=== PATIENT | female | born 1990 | race African-American/Black ===

== ENCOUNTER 2019-02-11 02:12 | Emergency (ER) | payer OTHER ==
[2019-02-11 03:53] LABS: #Basophils 0.1 thou/uL (0.0-0.2); #Eosinphils 0.1 thou/uL (0.0-0.7); #Lymphocytes 2.4 thou/uL (1.20-3.40); #Monocytes 0.5 thou/uL (0.11-0.59); #Neutrophils 3.3 thou/uL (1.40-6.50); %Basophils 0.9 % (0.0-1.0); %Eosinophils 1.5 % (0.0-10.0); %Lymphocytes 37.9 % (21.0-51.0); %Monocytes 8.4 % (0.0-10.0); %Neutrophils 51.3 % (42.0-75.0); Hemoglobin 12.9 g/dL (12.0-16.0); Mean Corpuscular HGB CONC 32.2 g/dL (32.0-36.0); Mean Corpuscular Hemoglobin 28.1 pg (27.0-31.0); Mean Corpuscular Volume 87.2 fL (78.0-98.0); Mean Platelet Volume 7.3 fL (7.4-10.4); Platelet Count 262 thou/uL (130-400); RBC Distribution Width 11.9 % (11.5-14.5); Red Blood Cell (RBC) Count 4.59 mill/uL (4.20-5.40); White Blood Cell (WBC) Count 6.3 thou/uL (4.8-10.8)
[2019-02-11 04:14] LABS: ALT (SGPT) 10 U/L (8-55); AST (SGOT) 13 U/L (5-34); Albumin 4.4 g/dL (3.5-5.0); Alkaline Phosphatase 70 U/L (40-150); Anion Gap 12 mmol/L (10-20); BUN (Urea Nitrogen) 10 mg/dL (7.0-18.7); Bilirubin, Total 0.2 mg/dL (0.2-1.2); Calc. Creatinine Clearance 0 mL/min (70-130); Calcium 9.9 mg/dL (7.8-10.44); Carbon Dioxide 25 mmol/L (22-29); Chloride 104 mmol/L (98-107); Estimated GFR-MDRD 88; Globulin 3.9 g/dL (2.4-3.5); Glucose 94 mg/dL (70-105); Potassium 3.7 mmol/L (3.5-5.1); Protein, Total 8.3 g/dL (6.0-8.3); Sodium 137 mmol/L (136-145)
[2019-02-11] MEDS ORDERED: hydrALAZINE 10 MG TAB PO SCH (04:30)
--- NOTE | 2019-02-11 08:01 | CT ---
FPRELIMINARY REPORT: CT Head Without Contrast EXAM DATE/TIME: 02/11/2019 3:50 AM CLINICAL HISTORY: 28 years old, female; Signs and symptoms; Dizziness; Patient HX: Patient reports dizziness whenever she walks, reports she feels like the room is spinning, and at times she feels like she may fall TECHNIQUE: Axial computed tomography images of the head/brain without contrast. COMPARISON: No relevant prior studies available. FINDINGS: Brain: Normal. No hemorrhage. No significant white matter disease. No edema. Ventricles: Normal. No ventriculomegaly. Bones/joints: Unremarkable. No acute fracture. Sinuses: Visualized sinuses are unremarkable. No acute sinusitis. Mastoid air cells: Visualized mastoid air cells are unremarkable. No mastoid effusion. Soft tissues: Unremarkable. IMPRESSION: No acute intracranial abnormality. Thank you for allowing us to participate in the care of your patient. Dictated and Authenticated by: Moses Santos MD 02/11/2019 4:00 AM Central Time ([place] & [place]) Final report by Dr. Ridley Emergency after-hours study. CT brain noncontrast: HISTORY: 28-year-old female with dizziness and vertigo FINDINGS: There is no evidence of acute intra-axial or extra-axial hemorrhage. No mass effect, midline shift, o r extra-axial fluid collection. No evidence of obstructive hydrocephalus. Calvarium is intact. Agree with preliminary report by virtual radiologic. IMPRESSION: No acute intracranial findings. Transcribed Date/Time: 02/11/2019 1:10 PM
== END 2019-02-11 05:05 | disposition home or self-care (01) ==
LOC: ERS 02:12
DX: H81.399 Other peripheral vertigo, unspecified ear (principal); I10 Essential (primary) hypertension; Z79.899 Other long term (current) drug therapy
CPT/HCPCS: 36415; 70450; 80053; 84484; 85025; 93005

== ENCOUNTER 2019-04-11 13:09 | Inpatient (IN) | payer OTHER ==
[2019-04-11] MEDS ORDERED: hydrALAZINE 20 MG/ML VIAL ONE (13:30)
[2019-04-11 13:59] LABS: #Lymphocytes 1.6 thou/uL (1.20-3.40); #Monocytes 0.3 thou/uL (0.11-0.59); #Neutrophils 3.1 thou/uL (1.40-6.50); %Basophils 0.5 % (0.0-1.0); %Eosinophils 0.7 % (0.0-10.0); %Lymphocytes 31.1 % (21.0-51.0); %Monocytes 6.6 % (0.0-10.0); %Neutrophils 61.1 % (42.0-75.0); Hemoglobin 13.1 g/dL (12.0-16.0); Mean Corpuscular HGB CONC 33.2 g/dL (32.0-36.0); Mean Corpuscular Hemoglobin 28.5 pg (27.0-31.0); Mean Corpuscular Volume 85.8 fL (78.0-98.0); Platelet Count 264 thou/uL (130-400); RBC Distribution Width 12.1 % (11.5-14.5); Red Blood Cell (RBC) Count 4.59 mill/uL (4.20-5.40)
[2019-04-11 14:09] LABS: Bilirubin Negative (Negative); Blood, Urine Negative (Negative); Glucose, Urine (Dipstick) Negative (Negative); Leukocyte Negative (Negative); Nitrite Negative (Negative); Protein, Urine (Dipstick) Negative (Neg-Trace); Specific Gravity, Urine 1.024 (1.002-1.036); Urobilinogen 0.2 mg/dL (0.2-1.0); pH, Urine 6.5 (5.0-9.0)
[2019-04-11 14:12] LABS: Clarity Cloudy (Clear)
[2019-04-11] MEDS ORDERED: Labetalol HCl 100 MG/20 ML VIAL ONE (14:23)
[2019-04-11 14:24] LABS: ALT (SGPT) 11 U/L (8-55); AST (SGOT) 16 U/L (5-34); Albumin 4.5 g/dL (3.5-5.0); Alkaline Phosphatase 66 U/L (40-150); Anion Gap 15 mmol/L (10-20); BUN (Urea Nitrogen) 13 mg/dL (7.0-18.7); Bilirubin, Total 0.4 mg/dL (0.2-1.2); Calc. Creatinine Clearance 0 mL/min (70-130); Calcium 9.9 mg/dL (7.8-10.44); Carbon Dioxide 25 mmol/L (22-29); Chloride 103 mmol/L (98-107); Estimated GFR-MDRD 76; Globulin 3.9 g/dL (2.4-3.5); Glucose 98 mg/dL (70-105); Potassium 3.6 mmol/L (3.5-5.1); Protein, Total 8.4 g/dL (6.0-8.3); Sodium 139 mmol/L (136-145)
--- NOTE | 2019-04-11 14:54 | RAD ---
SINGLE VIEW OF THE CHEST: COMPARISON: None. HISTORY: Hypertension. FINDINGS: Single view of the chest shows a normal sized cardiomediastinal silhouette. There is no evidence of c onsolidation, mass, or pleural effusion. The bones are unremarkable. IMPRESSION: No evidence of acute cardiopulmonary disease. POS: [facility]
[2019-04-11] MEDS ORDERED: Lisinopril 10 MG TAB ONE (15:27)
[2019-04-11] MEDS ORDERED: Spironolactone 25 MG TAB PO SCH ×2 (15:45→16:00)
--- NOTE | 2019-04-11 15:51 | PDOC.FPRHP ---
- History of Present Illness Chief Complaint: high BP History of Present Illness: Ms. Briscoe is a 28 yo AAF with PMHx primary hyperaldosteronism and secondary HTN who presents after being sent over from clinic for diastolic BP in the 150s. She states she has been feeling well and apart from having a dry cough last night and a little bit of a headache since arriving to ED, has had no new symptoms. She denies vision changes or blurry vision. She has been taking meds as prescribed. She states she was still on 20 mg of lisinopril and discussion with Dr. Dixon today was to add back on chlorthalidone. ED Course: 10 IV hydralazine 10 IV labetalol CXR and EKG - Allergies/Adverse Reactions Allergies Allergy/AdvReac Type Severity Reaction Status Date / Time No Known Drug Allergies Allergy Verified 04/11/19 17:12 - Home Medications Medication Instructions Recorded Confirmed Type Lisinopril 20 mg PO DAILY 04/11/19 04/11/19 History Metoprolol Succinate 25 mg PO DAILY 04/11/19 04/11/19 History Spironolactone 50 mg PO DAILY 04/11/19 04/11/19 History - History PMHx: Primary hyperaldosteronism, secondary HTN PSHx: Cholecystectomy FHx: Mom with DM and HTN, Dad with HTN, Brother with kidney failure Social: Rare social alcohol (1-2 drinks), denies tobacco or drug use, works at [employer], with 1 daughter - Review of Systems General: denies: fever/chills, weight/appetite/sleep changes Eyes: denies: eye pain, vision changes ENT: denies: nasal congestion, rhinorrhea Respiratory: reports: cough. denies: congestion, shortness of breath, exercise intolerance Cardiovascular: denies: chest pain, palpitation Gastrointestinal: denies: nausea, vomiting, abdominal pain Genitourinary: denies: incontinence, dysuria Skin: denies: rashes, lesions Musculoskeletal: denies: pain, stiffness Neurological: denies: numbness, syncope, weakness Psychological: denies: anxiety, depression - Vital signs BP: 163/120 HR: 109 RR: 16 Tmax: 99.0 Pox: 100% on RA Wt: 80 kg - Physical Exam Constitutional: NAD, awake, alert and oriented, well developed HEENT: EOMI, conjunctiva clear, grossly normal vision, MMM Neck: supple, trachea midline Chest: no-tender to palpation Heart: RRR, normal S1/S2 Lungs: CTAB, no respiratory distress Abdomen: soft, non-tender Musculoskeletal: normal structure, normal tone Neurological: no focal deficit, normal sensation Skin: no rash/lesions, capillary refill <2 seconds Heme/Lymphatic: no unusual bruising or bleeding, no purpura Psychiatric: normal mood and affect, good judgment and insight FMR H&P: Results - Labs Result Diagrams: 04/11/19 13:45 04/11/19 13:45 Lab results: WBC 5.0 thou/uL (4.8-10.8) 04/11/19 13:45 Hgb 13.1 g/dL (12.0-16.0) 04/11/19 13:45 Hct 39.4 % (36.0-47.0) 04/11/19 13:45 MCV 85.8 fL (78.0-98.0) 04/11/19 13:45 Plt Count 264 thou/uL (130-400) 04/11/19 13:45 Neutrophils % 61.1 % (42.0-75.0) 04/11/19 13:45 Sodium 139 mmol/L (136-145) 04/11/19 13:45 Potassium 3.6 mmol/L (3.5-5.1) 04/11/19 13:45 Chloride 103 mmol/L (98-107) 04/11/19 13:45 Carbon Dioxide 25 mmol/L (22-29) 04/11/19 13:45 BUN 13 mg/dL (7.0-18.7) 04/11/19 13:45 Creatinine 1.03 mg/dL (0.6-1.1) 04/11/19 13:45 Glucose 98 mg/dL (70-105) 04/11/19 13:45 Calcium 9.9 mg/dL (7.8-10.44) 04/11/19 13:45 Total Bilirubin 0.4 mg/dL (0.2-1.2) 04/11/19 13:45 AST 16 U/L (5-34) 04/11/19 13:45 ALT 11 U/L (8-55) 04/11/19 13:45 Alkaline Phosphatase 66 U/L (40-150) 04/11/19 13:45 Serum Total Protein 8.4 g/dL (6.0-8.3) H 04/11/19 13:45 Albumin 4.5 g/dL (3.5-5.0) 04/11/19 13:45 Urine Ketones Negative mg/dL (Negative) 04/11/19 13:33 Urine Blood Negative (Negative) 04/11/19 13:33 Urine Nitrite Negative (Negative) 04/11/19 13:33 Ur Leukocyte Esterase Negative (Negative) 04/11/19 13:33 - Radiology Interpretation Chest x-ray Status: image reviewed by me (no acute cardiopulmonary process) FMR H&P: A/P - Problem List (1) Primary hyperaldosteronism Current Visit: Yes Status: Acute (2) Secondary hypertension Current Visit: Yes Status: Acute Code(s): I15.9 - SECONDARY HYPERTENSION, UNSPECIFIED (3) Hypertensive urgency Current Visit: Yes Status: Acute Code(s): I16.0 - HYPERTENSIVE URGENCY - Plan 28 yo F with primary hyperaldosteronism (and secondary HTN) here with hypertensive urgency 1. Hypertensive urgency - Modest improvement with IV hydralazine and labetalol - Goal decrease no more than 20-30% in 24 hours - Asymptomatic - Will increase home spironolactone, consider changing B-bin to Coreg/ increase Lisinopril if insufficient - Monitor on tele obs 2. Primary hyperaldosteronism - Pending renal artery dopplers outpatient to r/o renal artery stenosis as well - Increase spironolactone as above (q2 weeks) - Endo referral pending OP - Unremarkable CT in January 2019 3. Diastolic dysfunction (HFpEF) - Outpatient cardiology referral in place - Asymptomatic - Echo EF 52% with grade 1 diastolic dysfunction in January 2019 - On ELSI and B-bin 4. Secondary HTN - See #1 PPX: Lovenox CODE: FULL Patient discussed with Dr. Hermosillo who agrees with above A/P. Addendum - Attending - Attending Attestation Date/Time: 04/11/19 8121 I personally evaluated the patient and discussed the management with Dr. Jalloh. I agree with the History, Examination, Assessment and Plan documented above with any addition or exceptions noted below. Patient with history of hypertension secondary to primary hyperaldosteronism presenting from our outside clinic due to elevated blood pressure. Patient is overall asymptomatic, other than a headache she received after hydralazine therapy. She denies chest pain, shortness of breath, edema, palpitations. Vital signs on admission showed systolic blood pressure greater than 200 and diastolic pressures in the 130 to 140 range. Blood pressure is improved currently at 170/105. Patient is otherwise asymptomatic. Labs reviewed from todays admission are overall stable with her baseline. No evidence of cardiac ischemia or renal insult. Clinic labs reviewed which showed extremely elevated aldosterone to renin ratio likely confirming primary hyperaldosteronism. Patient will be admitted for hypertensive urgency, will increase Spironolactone and add back home medications and titrate as needed to improve blood pressure. Ensure electrolytes remain within normal limits. She otherwise has outpatient work up and imaging studies planned and will defer that at this time unless symptoms or her clinical condition deteriorates. Nicole Hermosillo MD, MS
[2019-04-11 17:19] VITALS: BMI 33.9
[2019-04-11 18:09] LABS: Troponin I Less than 0.010 ng/mL (< 0.028)
[2019-04-11] MEDS: Acetaminophen 500 MG TAB PO PRN (19:03)
[2019-04-11] MEDS: Labetalol HCl 100 MG/20 ML VIAL SLOW IVP PRN ×3 (19:49→22:02)
[2019-04-11 20:59] LABS: Troponin I Less than 0.010 ng/mL (< 0.028)
[2019-04-11] MEDS ORDERED: hydrALAZINE 20 MG/ML VIAL SLOW IVP SCH (22:45)
[2019-04-11] MEDS: Ketorolac Tromethamine 30 MG/ML VIAL IVP PRN (23:49)
--- NOTE | 2019-04-12 05:57 | PDOC.FM ---
- Subjective Subjective: Uncontrolled BPs requiring IV labetalol and hydralazine. Has mild MORALES, but much improved. No chest pain, SOB. - Objective MAR Reviewed: Yes Vital Signs & Weight: Vital Signs (12 hours) Temp Pulse Resp BP BP Pulse Ox 04/12/19 03:00 98.1 F 90 16 133/83 99 04/11/19 23:15 97.5 F L 92 20 165/89 H 98 04/11/19 22:50 91 04/11/19 22:30 91 196/120 H 04/11/19 22:25 90 190/119 H 04/11/19 21:33 83 183/103 H 04/11/19 21:03 90 208/126 H 04/11/19 19:39 98.4 F 82 16 186/125 H 100 04/11/19 18:00 166/103 H Weight Weight 81.363 kg I&O: 04/10/19 04/11/19 04/12/19 06:59 06:59 06:59 Intake Total 113 Output Total 425 Balance -312 Result Diagrams: 04/12/19 06:16 04/12/19 06:16 Phys Exam - Physical Examination Constitutional: NAD HEENT: PERRLA, moist MMs Respiratory: no wheezing, clear to auscultation bilateral Cardiovascular: RRR, no significant murmur Gastrointestinal: soft, non-tender Neurological: non-focal, moves all 4 limbs Psychiatric: normal affect, A&O x 3 Skin: no rash, cap refill <2 seconds Dx/Plan (1) Hypertensive urgency Code(s): I16.0 - HYPERTENSIVE URGENCY Status: Acute (2) Primary hyperaldosteronism Status: Acute (3) Secondary hypertension Code(s): I15.9 - SECONDARY HYPERTENSION, UNSPECIFIED Status: Acute - Plan Plan: 28 yo F with primary hyperaldosteronism (and secondary HTN) here with hypertensive urgency #Hypertensive urgency - Goal decrease no more than 20-30% in 24 hours - Asymptomatic, currently - Required 60mg labetalol & 10hydralazine overnight - Overnight BPs ranging from 133/83-208/136 - change metoprolol to coreg, start spironolactone 50mg BID, continue lisinopril 20 - Obtian renal US since planned for outpt workup - If BPs remain <160/<110 today then can consider late dischrage - If requiring PRN IV antihypertensives will keep overnight #Primary hyperaldosteronism - Pending renal artery dopplers outpatient to r/o renal artery stenosis as well - Increase spironolactone as above (q2 weeks) - Endo referral pending OP - Unremarkable CT in January 2019 #Diastolic dysfunction (HFpEF) - Outpatient cardiology referral in place - Asymptomatic - Echo EF 52% with grade 1 diastolic dysfunction in January 2019 #Secondary HTN - See #1 dvt PPX: Lovenox CODE: FULL
[2019-04-12 06:47] LABS: #Eosinphils 0.1 thou/uL (0.0-0.7); #Lymphocytes 1.4 thou/uL (1.20-3.40); #Monocytes 0.5 thou/uL (0.11-0.59); #Neutrophils 2.6 thou/uL (1.40-6.50); %Basophils 0.8 % (0.0-1.0); %Eosinophils 1.9 % (0.0-10.0); %Lymphocytes 30.6 % (21.0-51.0); %Monocytes 11.4 % (0.0-10.0); %Neutrophils 55.3 % (42.0-75.0); Mean Corpuscular HGB CONC 32.5 g/dL (32.0-36.0); Mean Corpuscular Hemoglobin 28.1 pg (27.0-31.0); Mean Corpuscular Volume 86.3 fL (78.0-98.0); Mean Platelet Volume 7.2 fL (7.4-10.4); Platelet Count 256 thou/uL (130-400); RBC Distribution Width 12.3 % (11.5-14.5); Red Blood Cell (RBC) Count 4.62 mill/uL (4.20-5.40); White Blood Cell (WBC) Count 4.7 thou/uL (4.8-10.8)
[2019-04-12 07:09] LABS: ALT (SGPT) 9 U/L (8-55); AST (SGOT) 14 U/L (5-34); Alkaline Phosphatase 60 U/L (40-150); Anion Gap 13 mmol/L (10-20); BUN (Urea Nitrogen) 14 mg/dL (7.0-18.7); Bilirubin, Total 0.3 mg/dL (0.2-1.2); Calc. Creatinine Clearance 129 mL/min (70-130); Calcium 9.6 mg/dL (7.8-10.44); Carbon Dioxide 24 mmol/L (22-29); Chloride 102 mmol/L (98-107); Estimated GFR-MDRD Greater than 90; Globulin 3.4 g/dL (2.4-3.5); Glucose 96 mg/dL (70-105); Potassium 3.7 mmol/L (3.5-5.1); Protein, Total 7.4 g/dL (6.0-8.3); Sodium 135 mmol/L (136-145)
[2019-04-12] MEDS: Enoxaparin Sodium 40 MG/0.4 ML SYRINGE SC SCH (07:53)
[2019-04-12] MEDS ORDERED: Spironolactone 100 MG TAB PO SCH (08:00)
[2019-04-12] MEDS: Carvedilol 3.125 MG TAB PO SCH ×2 (10:39→11:24)
[2019-04-12] MEDS ORDERED: Lisinopril 20 MG TAB PO SCH (10:45)
[2019-04-12] MEDS ORDERED: Carvedilol 3.125 MG TAB PO SCH ×2 (11:45→17:00)
[2019-04-12] MEDS: Ketorolac Tromethamine 30 MG/ML VIAL IVP PRN (14:04)
--- NOTE | 2019-04-12 15:15 | ULT ---
BILATERAL RENAL ULTRASOUND COMPLETE INCLUDING COLOR AND SPECTRAL DOPPLER IMAGING: HISTORY: Uncontrolled chronic hypertension. FINDINGS: The right kidney measures 9.8 x 3.7 x 4.9 cm. The left kidney measures 10.6 x 5.0 x 4.6 cm. No renal hydronephrosis. No perinephric process. Uri nary bladder appears unremarkable. VASCULAR DUPLEX WITH COLOR AND SPECTRAL DOPPLER IMAGING: No significant abnormal increased velocities. Right and left renal artery/aortic ratios are within n ormal limits. Right and left resistive indices are within normal limits, 0.5 cm on the right, 0.5 cm on the left. IMPRESSION: Unremarkable bilateral renal ultrasound. No renal hydronephrosis. No evidence for abnormal renal ar ailyn stenosis. POS: OFF
[2019-04-12] MEDS: Carvedilol 6.25 MG TAB PO SCH (16:19)
[2019-04-12] MEDS: Labetalol HCl 100 MG/20 ML VIAL SLOW IVP PRN (21:48)
[2019-04-13 06:19] LABS: Anion Gap 12 mmol/L (10-20); BUN (Urea Nitrogen) 20 mg/dL (7.0-18.7); Calc. Creatinine Clearance 106 mL/min (70-130); Calcium 9.8 mg/dL (7.8-10.44); Carbon Dioxide 25 mmol/L (22-29); Chloride 103 mmol/L (98-107); Estimated GFR-MDRD 79; Glucose 92 mg/dL (70-105); Potassium 4.1 mmol/L (3.5-5.1); Sodium 136 mmol/L (136-145)
--- NOTE | 2019-04-13 06:47 | PDOC.FM ---
- Subjective Subjective: NAEO. NO headaches, chest pain, SOB. Slept well. - Objective MAR Reviewed: Yes Vital Signs & Weight: Vital Signs (12 hours) Temp Pulse Resp BP BP Pulse Ox 04/13/19 03:05 97.5 F L 77 16 137/89 99 04/12/19 23:15 81 180/110 H 04/12/19 21:48 81 185/130 H 04/12/19 20:03 98.1 F 80 18 181/116 H 100 04/12/19 19:10 98.1 F 78 16 170/120 H 100 Weight Weight 81.363 kg I&O: 04/11/19 04/12/19 04/13/19 06:59 06:59 06:59 Intake Total 503 Output Total 425 Balance 78 Result Diagrams: 04/12/19 06:16 04/13/19 05:08 Phys Exam - Physical Examination Constitutional: NAD HEENT: PERRLA, moist MMs Respiratory: no wheezing, clear to auscultation bilateral Cardiovascular: RRR, no significant murmur, no rub Musculoskeletal: no edema Neurological: non-focal, moves all 4 limbs Psychiatric: normal affect, A&O x 3 Skin: no rash, cap refill <2 seconds Dx/Plan (1) Hypertensive urgency Code(s): I16.0 - HYPERTENSIVE URGENCY Status: Acute (2) Primary hyperaldosteronism Status: Acute (3) Secondary hypertension Code(s): I15.9 - SECONDARY HYPERTENSION, UNSPECIFIED Status: Acute - Plan Plan: 28 yo F with primary hyperaldosteronism (and secondary HTN) here with hypertensive urgency #Hypertensive urgency - Asymptomatic, currently - Overnight BPs still elevated, ranging 148-180/105-120, averaging in high 160s for SBP - currently coreg 6.25 BID, spironolactone 50mg BID, lisinopril 20 - Required IV labetalol overnight, 20mg x1 - coreg 6.25 x1, inc to 12.5 BID, continue BP monitoring #Primary hyperaldosteronism - Renal arter dopplers negative - Endo referral in process outpatient, per PCP - Unremarkable CT in January 2019 -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 Connor. I agree with the History, Examination, Assessment and Plan documented above with any addition or exceptions noted below. Will try addition of hydralazine today and see how BPs respond throughout the day. Continue 24h urine cortisol collection. Likely d/c today.
[2019-04-13] MEDS: Spironolactone 100 MG TAB PO SCH ×2 (08:53→20:24)
[2019-04-13] MEDS: Lisinopril 20 MG TAB PO SCH (08:55)
[2019-04-13] MEDS: Carvedilol 6.25 MG TAB PO SCH ×2 (08:56→16:25)
[2019-04-13] MEDS: Enoxaparin Sodium 40 MG/0.4 ML SYRINGE SC SCH (08:56)
[2019-04-13] MEDS ORDERED: Carvedilol 6.25 MG TAB PO SCH ×2 (09:18→17:00)
[2019-04-13] MEDS ORDERED: hydrALAZINE 10 MG TAB PO SCH (11:45)
[2019-04-13] MEDS: hydrALAZINE 10 MG TAB PO SCH ×2 (16:24→20:24)
[2019-04-14 05:50] LABS: Anion Gap 12 mmol/L (10-20); BUN (Urea Nitrogen) 15 mg/dL (7.0-18.7); Calc. Creatinine Clearance 126 mL/min (70-130); Calcium 9.5 mg/dL (7.8-10.44); Carbon Dioxide 23 mmol/L (22-29); Chloride 105 mmol/L (98-107); Estimated GFR-MDRD Greater than 90; Glucose 83 mg/dL (70-105); Potassium 4.1 mmol/L (3.5-5.1); Sodium 136 mmol/L (136-145)
--- NOTE | 2019-04-14 06:04 | PDOC.FM ---
- Subjective Subjective: NAEO. Denies headaches, vision changes, CP, feeling SOB. No concerns at this time. - Objective MAR Reviewed: Yes Vital Signs & Weight: Vital Signs (12 hours) Temp Pulse Resp BP BP Pulse Ox 04/14/19 03:15 98.3 F 79 16 179/111 H 93 L 04/13/19 21:19 81 136/87 04/13/19 20:24 90 172/104 H 04/13/19 20:22 98.4 F 90 18 172/104 H 98 Weight Weight 81.363 kg I&O: 04/12/19 04/13/19 04/14/19 06:59 06:59 06:59 Intake Total 503 550 Output Total 425 Balance 78 550 Result Diagrams: 04/12/19 06:16 04/14/19 04:07 Phys Exam - Physical Examination Constitutional: NAD HEENT: PERRLA, moist MMs Neck: full ROM Respiratory: no wheezing, clear to auscultation bilateral Cardiovascular: RRR, no significant murmur Neurological: non-focal, moves all 4 limbs Psychiatric: normal affect, A&O x 3 Dx/Plan (1) Hypertensive urgency Code(s): I16.0 - HYPERTENSIVE URGENCY Status: Acute (2) Primary hyperaldosteronism Status: Acute (3) Secondary hypertension Code(s): I15.9 - SECONDARY HYPERTENSION, UNSPECIFIED Status: Acute - Plan Plan: 28 yo F with primary hyperaldosteronism (and secondary HTN) here with hypertensive urgency #Hypertensive urgency - Asymptomatic, currently - Overnight BPs still elevated, 136-179/87-111, not requiring IV antihypertensives overnight - currently coreg 6.25 BID, spironolactone 50mg BID, lisinopril 20 -will change hydralazine to 50 mg TID #Primary hyperaldosteronism - Renal artery dopplers negative - Endo referral in process outpatient, per PCP - Unremarkable CT in January 2019 -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 If can attain BP goal <160/< 110, can consider d/c. For now need more aggressive BP mgmt.
[2019-04-14] MEDS: Carvedilol 6.25 MG TAB PO SCH ×2 (09:09→17:22)
[2019-04-14] MEDS: hydrALAZINE 25 MG TAB PO SCH ×3 (09:09→20:07)
[2019-04-14] MEDS: Enoxaparin Sodium 40 MG/0.4 ML SYRINGE SC SCH (09:10)
[2019-04-14] MEDS: Spironolactone 100 MG TAB PO SCH ×2 (09:10→20:07)
[2019-04-14] MEDS: Lisinopril 20 MG TAB PO SCH (09:10)
[2019-04-14] MEDS: Acetaminophen 500 MG TAB PO PRN ×2 (12:17→20:06)
--- NOTE | 2019-04-15 06:42 | PDOC.FM ---
- Subjective Subjective: High BP but denies sxs-headache, chest pain, vision changes. Not requiring IV antihypertensives. Reports feeling well. BPs high overnight - Objective MAR Reviewed: Yes Vital Signs & Weight: Vital Signs (12 hours) Temp Pulse Resp BP BP Pulse Ox 04/15/19 04:00 173/115 H 04/15/19 03:30 98.2 F 79 18 183/111 H 100 04/14/19 23:13 76 177/117 H 100 04/14/19 21:49 170/107 H 04/14/19 20:07 89 186/126 H 04/14/19 20:05 98.5 F 89 16 186/126 H 100 Weight Weight 81.363 kg I&O: 04/13/19 04/14/19 04/15/19 06:59 06:59 06:59 Intake Total 1030 980 Balance 1030 980 Result Diagrams: 04/12/19 06:16 04/15/19 06:16 Phys Exam - Physical Examination Constitutional: NAD HEENT: PERRLA, moist MMs Respiratory: no wheezing, clear to auscultation bilateral Cardiovascular: RRR, no significant murmur Gastrointestinal: soft, non-tender Musculoskeletal: no edema Neurological: non-focal, moves all 4 limbs Psychiatric: normal affect, A&O x 3 Skin: cap refill <2 seconds Dx/Plan (1) Hypertensive urgency Code(s): I16.0 - HYPERTENSIVE URGENCY Status: Acute (2) Primary hyperaldosteronism Status: Acute (3) Secondary hypertension Code(s): I15.9 - SECONDARY HYPERTENSION, UNSPECIFIED Status: Acute - Plan Plan: 28 yo F with primary hyperaldosteronism (and secondary HTN) here with hypertensive urgency #Hypertensive urgency - Asymptomatic, currently - Overnight BPs still elevated, 136-179/87-111, not requiring IV antihypertensives overnight - currently coreg 6.25 BID, spironolactone 50mg BID, lisinopril 20 - will start chlorthalidone - d/c oral hydralazine, patient can use this as PRN #Primary hyperaldosteronism - Renal artery dopplers negative - Endo referral in process outpatient, per PCP - Unremarkable CT in January 2019 -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 Dixon Dispo: Continue monitor BPs, in hypertensive urgency range. Will see how new regimen affects BP
[2019-04-15 07:23] LABS: Anion Gap 12 mmol/L (10-20); BUN (Urea Nitrogen) 17 mg/dL (7.0-18.7); Calc. Creatinine Clearance 126 mL/min (70-130); Calcium 9.8 mg/dL (7.8-10.44); Carbon Dioxide 26 mmol/L (22-29); Chloride 101 mmol/L (98-107); Estimated GFR-MDRD Greater than 90; Glucose 98 mg/dL (70-105); Potassium 3.9 mmol/L (3.5-5.1); Sodium 135 mmol/L (136-145)
[2019-04-15] MEDS: Carvedilol 6.25 MG TAB PO SCH (08:03)
[2019-04-15] MEDS: Enoxaparin Sodium 40 MG/0.4 ML SYRINGE SC SCH (08:03)
[2019-04-15] MEDS: Spironolactone 100 MG TAB PO SCH (08:03)
[2019-04-15] MEDS: Lisinopril 20 MG TAB PO SCH (08:04)
[2019-04-15] MEDS ORDERED: Chlorthalidone 25 MG TAB PO SCH (09:00)
[2019-04-15] MEDS ORDERED: hydrALAZINE 25 MG TAB PO SCH ×2 (09:45→15:00)
[2019-04-15 12:30] VITALS: BP 160/101; TEMP 98.5
--- NOTE | 2019-04-16 12:50 | PRG ---
DATE OF SERVICE: 04/14/2019 ADDENDUM: Please see the note from Dr. Connor, for which I agree. The patient is seen, evaluated, and discussed with the residents by bedside. Basically, the patient is here for urgent hypertension from hyperaldosteronism. We are trying different blood pressure pill management to try to get her blood pressure down. Even this morning it was as high as 174/110, although last night was 136/87. Still it is not as high as when she initially came in. Current medicines include lisinopril 20 mg a day, spironolactone 50 mg b.i.d., Coreg 6.25 p.o. b.i.d., and hydralazine was increased from 10 q.i.d. to 50 t.i.d. I am going to watch her for swelling and side effects and will monitor blood pressure today. But she is asymptomatic, blood pressure in general has improved, so not sure if there is really any reason to continue this workup as an outpatient. We are getting a 24-hour urine cortisol that is pending as well, but it sounds like we have had proven elevated aldosterone in the past. Job ID: [id number]
--- NOTE | 2019-04-16 12:56 | PRG ---
DATE OF SERVICE: 04/15/2019 ADDENDUM: Please see the note from Dr. Connor, for which I agree. The patient is seen, evaluated, and discussed with the residents by bedside. Unfortunately, we are still in a struggle with her blood pressure. It is no where near as bad as the diastolics in the 150s that she was 2 to 3 days ago. Systolic is still basically in the 140s to 150s and diastolic is between 100 and 110, but she is entirely asymptomatic, and most of the medicines that we started her on are not going to act immediately anyway. So at this point in time, with a completely normal exam and asymptomatic hypertension from the hyperaldosteronism, I do not think she needs to be in the hospital as we have not been giving her any IV BP medications now in the last couple of days. Chlorthalidone will be added back, and we will continue Coreg [address] up to 100 t.i.d. if needed. We will continue the same Coreg, lisinopril, and spironolactone 50 p.o. b.i.d. as well. We will follow closely and obviously manage this as an outpatient. Job ID: [id number]
--- NOTE | 2019-04-16 15:41 | DIS ---
DATE OF ADMISSION: 04/11/2019 DATE OF DISCHARGE: 04/15/2019 ADMITTING ATTENDING: Robin Price MD DISCHARGE ATTENDING: Gumaro Arrdeondo MD RESIDENT: Sarah Connor MD, PGY-1. CONSULTS: None. PROCEDURES AND IMAGIN. Unremarkable bilateral renal ultrasound. No hydronephrosis. No abnormal renal artery stenosis. 2. Chest x-ray, no evidence of acute cardiopulmonary disease. PRIMARY DIAGNOSES: 1. Hypertensive urgency secondary to primary hyperaldosteronism. 2. Diastolic heart failure. 3. Secondary hypertension. 4. Primary hyperaldosteronism. DISCHARGE MEDICATIONS: 1. Spironolactone 50 mg p.o. b.i.d. 2. Lisinopril 20 mg p.o. daily. 3. Hydralazine 50 mg p.o. t.i.d., please titrate as discussed if blood pressure is running to higher level. 4. Chlorthalidone 12.5 mg p.o. daily. 5. Coreg 6.25 mg p.o. b.i.d. with meals. 6. Tylenol 1000 mg p.o. q.6 hours p.r.n. for fever and pain. DISCONTINUED MEDICATIONS: 1. Metoprolol 25 mg p.o. daily. 2. Spironolactone 50 mg p.o. daily. HISTORY OF PRESENT ILLNESS/HOSPITAL COURSE: Ms. Briscoe is a 28-year-old female with primary hyperaldosteronism, who was sent over to ED from the clinic for elevated blood pressures. In the ER, she had an elevated diastolic blood pressure in the 150s. The patient endorsed small headache and having a dry cough on admission, but no onset of related symptoms. She was admitted for hypertensive urgency, likely secondary to primary hyperaldosteronism. Recent diagnosis for the patient has been undergoing blood pressure medication titration for the past several weeks with blood pressures that have been very difficult to control. It was felt that she needed to be sent over here for more aggressive control due to concern for end-organ damage. Needless to say, labs and imaging were negative for signs of end-organ damage. Over the next couple of days, the patient's medication were changed in order to find a regimen that worked well for her. Secondary workup including a renal ultrasound was negative for renal artery stenosis. 24-hour urine cortisol collection was collected that will be sent, but still pending. Fortunately, we were able to get the patient's blood pressure down to 160 over less than 110 on day of discharge with a new blood pressure regimen as listed above. It was discussed the patient followup this week and will need to continue workup with outpatient [facility] in order to have better control of her blood pressure. On discharge, her symptoms have resolved. DISPOSITION: Stable. DISCHARGE INSTRUCTIONS: 1. Location: Home. 2. Diet: Heart healthy, low-sodium, low caffeine diet. 3. Activity: Ad ayala as tolerated. 4. Followup: Please follow up with PCP, Dr. Tena, this week. Please follow up with outpatient [facility], Dr. Padron, has been trying to set you up with. Please follow up on 24-hour cortisol collection that should result in lab in the next few days. If there are any questions or concerns, I am happy to answer them. Thank you very much. Job ID: [id number]
== END 2019-04-15 14:05 | disposition home or self-care (01) | DRG 305 ==
LOC: ERS 13:09 → OBSVTOIN 14:42 → 2SW 14:42 → 2NO 04-12 20:15
PROVIDERS: ADMIT Family Medicine; ATTEND Family Medicine
DX: I16.0 Hypertensive urgency (principal); I50.32 Chronic diastolic (congestive) heart failure; I11.0 Hypertensive heart disease with heart failure; E26.9 Hyperaldosteronism, unspecified; Z79.899 Other long term (current) drug therapy; Z90.49 Acquired absence of other specified parts of digestive tract
CPT/HCPCS: 36415; 71045; 76700; 76770; 80048; 80053; 81003; 82530; 84484; 85025; 93005; 94760; 96374; 96375; J0360; J1650; J1885

== ENCOUNTER 2023-12-24 00:35 | Emergency (ER) | payer BC ==
[2023-12-24] MEDS ORDERED: Lidocaine 2% Viscous 10 mL, Alum & Magn 30 mL SSW SCH (01:00)
[2023-12-24] MEDS ORDERED: Aspirin Chewable 81 MG TAB ONE (01:03)
[2023-12-24 01:05] LABS: #Monocytes 0.8 thou/uL (0.11-0.59); #Neutrophils 5.2 thou/uL (1.40-6.50); %Basophils 0.5 % (0.0-1.0); %Eosinophils 0.4 % (0.0-10.0); %Lymphocytes 23.6 % (21.0-51.0); %Monocytes 9.6 % (0.0-10.0); %Neutrophils 65.8 % (42.0-75.0); Hematocrit 39.6 % (36.0-47.0); Hemoglobin 12.7 g/dL (12.0-16.0); Mean Corpuscular HGB CONC 32.1 g/dL (32.0-36.0); Mean Corpuscular Hemoglobin 27.8 pg (27.0-31.0); Mean Corpuscular Volume 86.7 fl (78.0-98.0); Platelet Count 282 10x3/uL (130-400); RBC Distribution Width 13.3 % (11.5-14.5); Red Blood Cell (RBC) Count 4.57 mill/uL (4.20-5.40); White Blood Cell (WBC) Count 7.8 10x3/uL (4.8-10.8)
[2023-12-24 01:27] LABS: ALT (SGPT) 18 U/L (8-55); AST (SGOT) 28 U/L (5-34); Albumin 4.4 g/dL (3.5-5.0); Alkaline Phosphatase 74 U/L (40-110); Anion Gap 13 mmol/L (10-20); BUN (Urea Nitrogen) 11 mg/dL (7.0-18.7); Bilirubin, Total 0.3 mg/dL (0.2-1.2); Calc. Creatinine Clearance 0 mL/min (70-130); Calcium 9.6 mg/dL (7.8-10.44); Carbon Dioxide 27 mmol/L (22-29); Chloride 101 mmol/L (98-107); Estimated GFR 53; Globulin 3.7 g/dL (2.4-3.5); Glucose 114 mg/dL (70-105); Lipase 38 U/L (8-78); Potassium 3.3 mmol/L (3.5-5.1); Protein, Total 8.1 g/dL (6.0-8.3); Sodium 138 mmol/L (136-145)
[2023-12-24 01:38] LABS: Troponin I Less than 0.010 ng/mL (< 0.028)
[2023-12-24] MEDS ORDERED: Ondansetron PF 4 MG/2 ML Vial ONE (01:52)
[2023-12-24] MEDS ORDERED: Morphine 4 MG/ML VIAL ONE (01:52)
== END 2023-12-24 03:23 | disposition home or self-care (01) ==
LOC: ERS 00:35
DX: R10.13 Epigastric pain (principal); I10 Essential (primary) hypertension
CPT/HCPCS: 36415; 71046; 80053; 83690; 84484; 85025; 93005; 96361; 96374; 96375; J2270; J2405